=== PATIENT | male | born 1975 | race Caucasian/White ===

== ENCOUNTER 2016-09-12 21:34 | Emergency (ER) | payer SELFPAY | END 2016-09-12 22:32 | disposition home or self-care (01) | LOC: D.ER 21:34 | DX: K08.89 Other specified disorders of teeth and supporting structures (principal) ==

== ENCOUNTER 2016-09-25 12:08 | Emergency (ER) | payer SELFPAY | END 2016-09-25 12:59 | disposition home or self-care (01) | LOC: D.ER 12:08 | DX: H92.01 Otalgia, right ear (principal); H66.91 Otitis media, unspecified, right ear ==

== ENCOUNTER 2016-11-09 01:16 | Emergency (ER) | payer SELFPAY | END 2016-11-09 02:05 | disposition home or self-care (01) | LOC: D.ER 01:16 | DX: K08.89 Other specified disorders of teeth and supporting structures (principal); K02.9 Dental caries, unspecified; S02.5XXA Fracture of tooth (traumatic), initial encounter for closed fracture; X58.XXXA Exposure to other specified factors, initial encounter; Y93.89 Activity, other specified; Y92.89 Other specified places as the place of occurrence of the external cause; R68.84 Jaw pain ==

== ENCOUNTER 2017-03-14 20:35 | Emergency (ER) | payer SELFPAY | END 2017-03-14 21:30 | disposition home or self-care (01) | LOC: D.ER 20:35 | DX: H66.91 Otitis media, unspecified, right ear (principal); H92.01 Otalgia, right ear ==

== ENCOUNTER 2017-04-17 23:50 | Emergency (ER) | payer SELFPAY | END 2017-04-18 00:43 | disposition home or self-care (01) | LOC: D.ER 23:50 | DX: H72.91 Unspecified perforation of tympanic membrane, right ear (principal) ==

== ENCOUNTER 2017-12-02 20:39 | Emergency (ER) | payer SELFPAY ==
[~2017-12-02] VITALS: Ht 182.9 cm; Wt 100.9 kg
[2017-12-02 20:43] VITALS: Ht 182.9 cm; Wt 100.9 kg
[2017-12-03] MEDS ORDERED: AMOXICILLIN875 MG PO (00:03)
[2017-12-03] MEDS ORDERED: CORTISPORIN OTI10 M1 EACH EAR (00:03)
[2017-12-03 00:50] VITALS: BP 148/84
== END 2017-12-03 00:51 | disposition home or self-care (01) ==
LOC: D.ER 20:39
DX: H66.91 Otitis media, unspecified, right ear (principal)